=== PATIENT | female | born 1985 | race African-American/Black ===

== ENCOUNTER 2021-12-13 13:30 | Inpatient (IN) ==
[2021-12-11 14:45] LABS: Eosinophils # 0.1 10*3/uL (0.0-0.87); Eosinophils % 3.1 % (0.00-10.9); Hematocrit 35.2 VOL% (35.7-47.0); Hemoglobin 11.1 GM/DL (12.0-16.0); Immature Granulocytes % 0.5 %; Immature Granulocytes Absolute 0.02 #; Lymphocytes # 1.5 10*3/uL (1.4-4.0); Mean Corpuscular HGB Conc 31.5 GM/DL (32-36); Mean Corpuscular Volume 95.4 FL (87-102); Mean Platelet Volume 9.8 FL (9.6-12.0); Monocytes # 0.4 10*3/uL (0.11-0.8); Monocytes % 9.4 % (1.7-12.7); Platelet Count 424 T/CUMM (130-400); Red Blood Count 3.69 MC/CUMM (3.8-5.5); Red Cell Distribution Width 13.4 % (9.3-17.3); White Blood Count 4.2 T/CUMM (4-12)
[2021-12-11 14:49] LABS: Bilirubin,Urine Negative (Negative); Blood, Urine Negative (Negative); Glucose,Urine (UA) Negative (Negative); Ketones,Urine Negative (Negative); Mucus,Urine Occasional /LPF (Occasional); Nitrite,Urine Negative (Negative); Protein,Urine Negative (Negative); Squamous Epithelial Cell,Urine Occasional /HPF (0-10); Urine Appearance Clear (Clear); Urine Color Yellow (Yellow); Urine Specific Gravity 1.015 (1.001-1.035); Urine Urobilinogen 0.2 eU/dL (<2.0); Urine pH 5.5 (4.5-8.0)
[2021-12-11 15:09] LABS: Albumin 3.2 G/DL (3.4-5.0); Bilirubin,Total 0.4 MG/DL (0.20-1.00); Calcium 8.8 MG/DL (8.5-10.1); Osmolality,Calculated 275.5 MOS/KG (273-304); Potassium 4.2 MMOL/L (3.5-5.1); Risk Ratio 3.61; Total Protein 7.2 G/DL (6.4-8.2); VLDL Cholesterol 13.4 MG/DL
[2021-12-11 16:00] LABS: HIV Antigen/Antibody Result Nonreactive (Nonreactive)
[2021-12-17] MEDS ORDERED: LACTATED RINGERS 1,000 ML IV SCH (10:00)
[2021-12-17] MEDS ORDERED: FAMOTIDINE 20 MG TABLET PO ONE (10:34)
[2021-12-17] MEDS ORDERED: DIAZEPAM 5 MG TABLET PO ONE (10:34)
[2021-12-17] MEDS ORDERED: AMPICILLIN/SULBACTAM 3,000 MG VIAL ONE (10:37)
[2021-12-17] MEDS ORDERED: LIDOCAINE 1% 5 ML VIAL ONE (13:37)
[2021-12-17] MEDS ORDERED: BUPIVACAINE MPF 0.25% 30 ML VIAL ONE (13:37)
[2021-12-17] MEDS ORDERED: ROCURONIUM 50 MG/5 ML VIAL IV ONE (13:40)
[2021-12-17] MEDS ORDERED: ONDANSETRON 4 MG/2 ML VIAL ONE ×2 (13:40→15:22)
[2021-12-17] MEDS ORDERED: LIDOCAINE 2% 5 ML VIAL ONE (13:40)
[2021-12-17] MEDS ORDERED: SEVOFLURANE 1 UNIT/15 MINUTE INH ONE (13:40)
[2021-12-17] MEDS ORDERED: propofoL 200 MG/20 ML VIAL IV ONE (13:40)
[2021-12-17] MEDS ORDERED: MIDAZOLAM 2 MG/2 ML VIAL ONE (13:41)
[2021-12-17] MEDS ORDERED: fentaNYL 100 MCG/2 ML VIAL ONE ×2 (13:41→15:07)
[2021-12-17] MEDS ORDERED: DEXAMETHASONE 4 MG/1 ML VIAL ONE (14:21)
[2021-12-17] MEDS ORDERED: DESFLURANE 1 UNIT/15 MINUTE INH ONE (14:34)
[2021-12-17] MEDS ORDERED: ACETAMINOPHEN INJ 1,000 MG/100 ML VIAL IV ONE (14:36)
[2021-12-17] MEDS ORDERED: PHENYLEPHRINE 1 MG/10 ML SYRINGE IV ONE (14:44)
[2021-12-17] MEDS ORDERED: NEOSTIGMINE 10 MG/10 ML VIAL ONE (14:52)
[2021-12-17] MEDS ORDERED: GLYCOPYRROLATE 0.4 MG/2 ML VIAL ONE (14:52)
[2021-12-17] MEDS ORDERED: HYDROmorphone 1 MG/1 ML SYRINGE ONE ×2 (15:22→15:24)
[2021-12-17] MEDS ORDERED: PROMETHAZINE 25 MG/1 ML VIAL ONE (15:24)
[2021-12-17] MEDS ORDERED: BENZOCAINE/MENTHOL LOZENGE 18/BOX PO PRN (15:25)
[2021-12-17] MEDS ORDERED: ACETAMINOPHEN 325 MG TABLET PO PRN (15:25)
[2021-12-17] MEDS ORDERED: BISACODYL 10 MG SUPP RECTAL PRN (15:25)
[2021-12-17] MEDS: HYDROmorphone 1 MG/1 ML SYRINGE IV PRN ×4 (15:25→15:40)
[2021-12-17] MEDS ORDERED: HYDROmorphone 1 MG/1 ML SYRINGE IV PRN (15:26)
[2021-12-17] MEDS ORDERED: ONDANSETRON 4 MG/2 ML VIAL IV PRN (15:29)
[2021-12-17] MEDS ORDERED: PROMETHAZINE INJ 25 MG in SODIUM CHLORIDE 0.9% 50 ML IV PRN (15:29)
[2021-12-17] MEDS ORDERED: diphenhydrAMINE 50 MG/1 ML VIAL IV PRN (15:29)
[2021-12-17] MEDS ORDERED: MEPERIDINE 25 MG/1 ML VIAL IV PRN (15:29)
[2021-12-17 15:35] LABS: Mucus,Urine Occasional /LPF (Occasional); RBC,Urine 1 /HPF (0-4); Squamous Epithelial Cell,Urine Occasional /HPF (0-10)
[2021-12-17 15:36] LABS: Bilirubin,Urine Negative (Negative); Blood, Urine Negative (Negative); Glucose,Urine (UA) Negative (Negative); Ketones,Urine Negative (Negative); Nitrite,Urine Negative (Negative); Protein,Urine Negative (Negative); Urine Appearance Clear (Clear); Urine Color Yellow (Yellow); Urine Specific Gravity 1.025 (1.001-1.035); Urine Urobilinogen 0.2 eU/dL (<2.0); Urine pH 6.5 (4.5-8.0)
[2021-12-17] MEDS: LACTATED RINGERS 1,000 ML IV SCH ×2 (15:43→23:16)
[2021-12-17] MEDS ORDERED: AMPICILLIN/SULBACTAM 3,000 MG VIAL IM ONE (15:46)
[2021-12-17] MEDS ORDERED: AMPICILLIN/SULBACTAM 3,000 MG in SODIUM CHLORIDE 0.9% 100 ML IV ONE (15:51)
[2021-12-17] MEDS ORDERED: oxyCODONE/ACETAMINOPHEN 5-325 MG TABLET PO PRN (19:39)
[2021-12-17] MEDS: ONDANSETRON 4 MG/2 ML VIAL IV PRN (19:51)
[2021-12-17] MEDS ORDERED: MEPERIDINE 50 MG/1 ML VIAL ONE (20:03)
[2021-12-17] MEDS: MEPERIDINE 50 MG/1 ML VIAL IV PRN (20:33)
[2021-12-17] MEDS: KETOROLAC 30 MG/1 ML VIAL IV SCH (21:10)
[2021-12-17 23:24] LABS: Basophils % 0.1 % (0.0-0.8); Hematocrit 35.4 VOL% (35.7-47.0); Hemoglobin 10.9 GM/DL (12.0-16.0); Immature Granulocytes % 0.3 %; Immature Granulocytes Absolute 0.04 #; Lymphocytes # 0.5 10*3/uL (1.4-4.0); Lymphocytes % 3.9 % (21.3-54.2); Mean Corpuscular HGB Conc 30.8 GM/DL (32-36); Mean Corpuscular Volume 96.7 FL (87-102); Monocytes # 0.4 10*3/uL (0.11-0.8); Monocytes % 3.2 % (1.7-12.7); Neutrophils % 92.5 % (38.7-73.9); Platelet Count 335 T/CUMM (130-400); Red Blood Count 3.66 MC/CUMM (3.8-5.5); Red Cell Distribution Width 13.2 % (9.3-17.3); White Blood Count 13.7 T/CUMM (4-12)
[2021-12-18 00:09] LABS: Lymphocytes 5 % (20-55); Platelet Estimate Adequate; Total Cells Counted 100
[2021-12-18] MEDS: KETOROLAC 30 MG/1 ML VIAL IV SCH ×3 (02:35→14:48)
[2021-12-18 04:31] LABS: Basophils % 0.1 % (0.0-0.8); Hematocrit 33.7 VOL% (35.7-47.0); Hemoglobin 10.5 GM/DL (12.0-16.0); Immature Granulocytes % 0.4 %; Immature Granulocytes Absolute 0.05 #; Lymphocytes % 8.7 % (21.3-54.2); Mean Corpuscular HGB Conc 31.2 GM/DL (32-36); Mean Corpuscular Volume 96.6 FL (87-102); Mean Platelet Volume 10.8 FL (9.6-12.0); Monocytes # 0.7 10*3/uL (0.11-0.8); Monocytes % 6.3 % (1.7-12.7); Neutrophils % 84.5 % (38.7-73.9); Platelet Count 313 T/CUMM (130-400); Red Blood Count 3.49 MC/CUMM (3.8-5.5); Red Cell Distribution Width 13.3 % (9.3-17.3); White Blood Count 11.8 T/CUMM (4-12)
[2021-12-18] MEDS: MEPERIDINE 50 MG/1 ML VIAL IV PRN (05:04)
[2021-12-18] MEDS: ONDANSETRON 4 MG/2 ML VIAL IV PRN (05:05)
[2021-12-18] MEDS: METOCLOPRAMIDE 10 MG TABLET PO PRN ×2 (08:43→16:34)
[2021-12-18] MEDS: MAGNESIUM HYDROXIDE SUSP 30 ML UDCUP PO PRN ×2 (08:43→19:40)
[2021-12-18] MEDS: DOCUSATE SODIUM 100 MG CAPSULE PO PRN ×2 (08:43→19:40)
[2021-12-18] MEDS ORDERED: MAGNESIUM CITRATE 300 ML BOTTLE PO ONE (16:29)
[2021-12-18] MEDS: IBUPROFEN 800 MG TABLET PO PRN (19:41)
[2021-12-18] MEDS: SIMETHICONE CHEW 80 MG TABLET PO PRN (22:39)
[2021-12-19] MEDS: METOCLOPRAMIDE 10 MG TABLET PO PRN ×3 (00:18→21:08)
[2021-12-19] MEDS: IBUPROFEN 800 MG TABLET PO PRN ×3 (08:00→23:55)
[2021-12-19] MEDS: DOCUSATE SODIUM 100 MG CAPSULE PO PRN ×2 (08:01→21:08)
[2021-12-19] MEDS ORDERED: ACETAMINOPHEN 500 MG TABLET PO PRN (14:37)
[2021-12-19] MEDS: SIMETHICONE CHEW 80 MG TABLET PO PRN (21:09)
[2021-12-20 13:53] VITALS: BP 130/61
== END 2021-12-20 12:40 | disposition home or self-care (01) | DRG 519 ==
LOC: N.SDSINP 12-17 09:44 → N.OB 12-17 16:34
PROVIDERS: ADMIT Obstetrics & Gynecology; ATTEND Obstetrics & Gynecology